=== PATIENT | male | born 1980 | race Caucasian/White ===

== ENCOUNTER 2021-03-27 09:35 | Outpatient (CLI) | payer OTHER, SELFPAY ==
[2021-03-27 09:56] LABS: Hematocrit 42.5 % (40.0-54.0); Hemoglobin 14.1 g/dL (14.0-18.0); Mean Corpuscular HGB Conc 33.2 g/dL (32.0-36.0); Mean Corpuscular Hemoglobin 30.2 pg (27.0-31.0); Mean Platelet Volume 10.4 fl (8.7-11.0); Platelet Count Result 237 K/mm3 (150-420); Red Blood Count 4.67 M/mm3 (4.70-6.10); White Blood Count 8.1 K/mm3 (4.8-10.8)
[2021-03-27 10:32] LABS: Alanine Aminotransferase 32 U/L (16-63); Albumin Level 4.3 g/dL (3.4-5.0); Alkaline Phosphatase 97 U/L (46-116); Anion Gap 10 mmol/L (8-16); Aspartate Amino Transferase 16 U/L (15-37); Blood Urea Nitrogen 15 mg/dL (7-18); Calcium 8.9 mg/dL (8.5-10.1); Carbon Dioxide 30 mmol/L (21-32); Chloride 103 mmol/L (98-108); Cholesterol 188 mg/dL (0-200); Estimated Glomerular Filt Rate > 60; Glucose 98 mg/dL (70-99); HDL Direct 68 mg/dL (40-60); LDL Cholesterol Calculated 107 mg/dL (<130); Osmolality Calculated 296 mOsm/kg (285-295); Potassium 4.2 mmol/L (3.5-5.1); Sodium 143 mmol/L (136-145); Total Protein 6.9 g/dL (6.4-8.2); Triglycerides 63 mg/dL (0-150)
[2021-03-27 10:44] LABS: CRP < 0.2 mg/dL (0.0-0.9)
== END 2021-03-27 09:36 | disposition home or self-care (01) ==
LOC: CHSLAB 09:37
PROVIDERS: PCP Family Medicine; Visit Provider Family Medicine
DX: Q55.9 Congenital malformation of male genital organ, unspecified (principal); Z00.00 Encounter for general adult medical examination without abnormal findings
CPT/HCPCS: 36415; 80053; 80061; 84153; 85027; 86140; G0103

== ENCOUNTER 2021-03-29 12:11 | Outpatient (CLI) | payer OTHER, SELFPAY ==
--- NOTE | ~2021-03-29 | US_ITS ---
US scrotum doppler INDICATION: Congenital malformation of the testes. TECHNIQUE: Testicular sonogram utilizing grayscale and color Doppler FINDINGS: The testes are normal in size and appearance. No focal lesions are seen. The right testes measures 5.9 x 2.7 x 4.4 cm centimeters, and the left testis measures 5.7 x 2.9 x 3.8 cm cm. There is normal vascular flow to both testes. There is a septated left epididymal cyst measuring 4 mm. There is a left varicocele.. IMPRESSION: 1. Left-sided varicocele. Reviewed, dictated and finalized at location A. [facility] ASSIST[facility] IMPRESSION: 1. Left-sided varicocele.
== END 2021-03-29 12:12 | disposition home or self-care (01) ==
LOC: CHSIMG 12:13
PROVIDERS: PCP Family Medicine; Visit Provider Family Medicine
DX: Q55.9 Congenital malformation of male genital organ, unspecified (principal)
CPT/HCPCS: 76870; 87086; 87491; 87591; 93976

== ENCOUNTER 2022-12-20 14:01 | Outpatient (CLI) | payer OTHER, SELFPAY ==
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
== END 2022-12-20 14:02 | disposition home or self-care (01) ==
LOC: CHSIMG 14:03
PROVIDERS: PCP Family Medicine; Visit Provider Family Medicine
DX: T14.8XXA Other injury of unspecified body region, initial encounter (principal); R60.0 Localized edema
CPT/HCPCS: 93970

== ENCOUNTER 2022-12-22 09:32 | Outpatient (CLI) | payer OTHER, SELFPAY ==
[2022-12-22 10:03] LABS: Basophils Absolute Auto 0.04 K/mm3 (0.00-0.10); Basophils Percent Auto 0.4 % (0.0-1.0); Eosinophils Absolute Auto 0.24 K/mm3 (0.02-0.50); Eosinophils Percent Auto 2.4 % (1.0-6.0); Hematocrit 42.2 % (40.0-54.0); Hemoglobin 13.9 g/dL (14.0-18.0); Immature Granulocyte Absolute 0.05 K/mm3 (0.00-0.00); Immature Granulocyte Percent A 0.5 % (0.0-0.0); Lymphocytes Absolute Auto 2.57 K/mm3 (1.10-4.50); Lymphocytes Percent Auto 25.8 % (18.0-42.0); Mean Corpuscular HGB Conc 32.9 g/dL (32.0-36.0); Mean Corpuscular Hemoglobin 30.3 pg (27.0-31.0); Mean Corpuscular Volume 91.9 fL (78.0-102.0); Mean Platelet Volume 9.4 fl (8.7-11.0); Monocytes Absolute Auto 0.84 K/mm3 (0.10-0.90); Monocytes Percent Auto 8.4 % (2.0-11.0); Neutrophils Absolute Auto 6.2 K/mm3 (1.7-7.2); Neutrophils Percent Auto 62.5 % (50.0-70.0); Platelet Count Result 347 K/mm3 (150-420); Red Blood Count 4.59 M/mm3 (4.70-6.10); Red Cell Distribution Width 12.6 % (11.6-14.4)
[2022-12-22 10:26] LABS: Alanine Aminotransferase 44 U/L (16-63); Albumin Level 3.7 g/dL (3.4-5.0); Alkaline Phosphatase 118 U/L (46-116); Anion Gap 6 mmol/L (8-16); Aspartate Amino Transferase 20 U/L (15-37); Bilirubin,Total 0.3 mg/dL (0.00-1.00); Blood Urea Nitrogen 21 mg/dL (7-18); Calcium 9.3 mg/dL (8.5-10.1); Carbon Dioxide 31 mmol/L (21-32); Chloride 104 mmol/L (98-108); Estimated Glomerular Filt Rate > 60; Glucose 100 mg/dL (70-99); NT Pro B Type Natriuretic Pept 67 pg/mL (0-125); Osmolality Calculated 295 mOsm/kg (285-295); Potassium 4.8 mmol/L (3.5-5.1); Sodium 141 mmol/L (136-145); Total Protein 6.7 g/dL (6.4-8.2)
== END 2022-12-22 09:33 | disposition home or self-care (01) ==
LOC: CHSLAB 09:33
PROVIDERS: PCP Family Medicine; Visit Provider Family Medicine
DX: R60.0 Localized edema (principal)
CPT/HCPCS: 36415; 80053; 83880; 85025

== ENCOUNTER 2025-03-19 09:56 | Outpatient (CLI) | payer OTHER, SELFPAY ==
[2025-03-19 10:20] LABS: Hematocrit 47.3 % (40.0-54.0); Hemoglobin 15.8 g/dL (14.0-18.0); Immature Granulocyte Percent A 0.3 % (0.0-0.0); Lymphocytes Absolute Auto 2.02 K/mm3 (1.10-4.50); Mean Corpuscular HGB Conc 33.4 g/dL (32-36); Mean Corpuscular Hemoglobin 29.5 pg (27.0-31.0); Mean Corpuscular Volume 88.4 fL (78.0-102.0); Nucleated Red Blood Cells Absolute Auto 0.00 K/mm3 (0.00-0.00); Nucleated Red Blood Cells Perc 0.0 % (0-0.0); Platelet Count Result 291 K/mm3 (150-420); Red Blood Count 5.35 M/mm3 (4.70-6.10); White Blood Count 7.0 K/mm3 (4.8-10.8)
[2025-03-19 10:46] LABS: Alanine Aminotransferase 36 U/L (6-50); Albumin Level 5.4 g/dL (3.5-5.1); Alkaline Phosphatase 90 U/L (38-126); Anion Gap 11 mmol/L (4-12); Aspartate Amino Transferase 29 U/L (17-59); Bilirubin,Total 1.5 mg/dL (0.2-1.3); Blood Urea Nitrogen 18 mg/dL (9-20); Calcium 9.9 mg/dL (8.4-10.2); Carbon Dioxide 25 mmol/L (22-30); Chloride 104 mmol/L (98-107); Cholesterol 298 mg/dL (0-200); Estimated Glomerular Filt Rate > 60; Glucose 100 mg/dL (65-110); HDL Direct 69 mg/dL; Osmolality Calculated 291 mOsm/kg (285-295); Potassium 5.0 mmol/L (3.4-5.0); Sodium 140 mmol/L (137-145); Total Protein 7.9 g/dL (6.3-8.2); Triglycerides 87 mg/dL (<150)
[2025-03-19 11:17] LABS: Thyroid Stimulating Hormone Reflex 2.050 uIU/mL (0.465-4.68)
== END 2025-03-19 09:57 | disposition home or self-care (01) ==
LOC: CHSLAB 09:57
PROVIDERS: PCP Family Medicine; Visit Provider Family Medicine
DX: Z00.00 Encounter for general adult medical examination without abnormal findings (principal); E03.9 Hypothyroidism, unspecified
CPT/HCPCS: 36415; 80053; 80061; 84443; 85025